=== PATIENT | female | born 1950 ===

== ENCOUNTER 2024-03-18 08:00 | Inpatient (IN) | payer OTHER ==
[~2024-03-18] VITALS: Ht 144.8 cm; Wt 68.0 kg
[2024-03-18 09:19] LABS: HEMATOCRIT 37.4 % (36.0-45.00); HEMOGLOBIN 12.7 g/dL (12.0-15.00); MEAN CELL VOLUME 87.7 fL (80.00-100.00); MEAN CORPUSCULAR HEMOGLOBIN 29.9 pg (27.00-32.0); MEAN CORPUSCULAR HGB CONC 34.1 g/dl (32.0-36.0); PLATELET COUNT 208 K/uL (150-450); RED BLOOD COUNT 4.26 M/uL (4.00-6.00); RED CELL DISTRIBUTION WIDTH 13.2 % (11.5-14.5)
[2024-03-18 09:22] LABS: URINE APPEARANCE Clear; URINE BILIRRUBIN Negative (NEGATIVE); URINE BLOOD Small; URINE COLOR Yellow; URINE GLUCOSE Negative (NEGATIVE); URINE KETONE Negative (NEGATIVE); URINE LEUKOCYTE Moderate; URINE NITRATE Negative; URINE PROTEIN Negative (NEGATIVE); URINE UROBILINOGEN 0.2 E.U./dl
[2024-03-18] MEDS ORDERED: ATACAND32 MG PO (09:45)
[2024-03-18] MEDS ORDERED: NORVASC10 MG PO (09:45)
[2024-03-18] MEDS ORDERED: ZETIA10 MG PO (09:45)
[2024-03-18] MEDS ORDERED: TOPROL XL25 M1 PO (09:45)
[2024-03-18] MEDS ORDERED: DRAMAMINE LESS25 MG PO (09:46)
[2024-03-18 09:47] VITALS: BP 140/80
[2024-03-18 09:47] LABS: PARTIAL THROMBOPLASTIN TIME 25.4 SECONDS (22.0-34.0); PROTHROMBIN TIME 10.9 SECONDS (9.0-11.5)
[2024-03-18 09:57] LABS: URINE RBC 52.9 uL (0.0-20.8); URINE WBC 103.5 uL (0.0-23.2)
[2024-03-18 09:58] LABS: URINE BACTERIA 71.8 uL (0.0-1933); URINE CAST 0.15 uL (0.0-1.40); URINE EPITHELIAL CELLS 18.8 uL (0.0-38.8)
[2024-03-18 10:32] LABS: ALBUMIN 3.7 gm/dL (3.4-5.0); BILIRUBIN TOTAL 0.73 mg/dL (0.3-1.2); CALCIUM 9.8 mg/dL (8.5-10.1); CREATININE SERUM 0.58 mg/dL (0.55-1.02); GFR 101.62; GLOBULINA 3.5 G/DL (2.4-3.5); POTASSIUM 4.02 mEq/L (3.5-5.1); TOTAL PROTEIN 7.2 gm/dL (6.4-8.2)
[2024-03-23] MEDS ORDERED: POVIDONE-IODINE 118 ML BOTT TOP SCH (13:15)
[2024-03-23] MEDS ORDERED: CEFAZOLIN SODIUM 1,000 MG VIAL IV SCH ×2 (13:15→17:00)
[2024-03-23] MEDS ORDERED: MORPHINE SULFATE 4 MG/ML VIAL IV ONE (15:00)
[2024-03-23] MEDS ORDERED: DEXTROSE 5 % AND 0.9 % NACL 1,000 ML IV SCH (15:15)
[2024-03-23] MEDS ORDERED: RINGERS SOLUTION,LACTATED 1,000 ML IV SCH (15:15)
[2024-03-23] MEDS ORDERED: PRAVASTATIN SOD20 MG (15:30)
[2024-03-23] MEDS ORDERED: HYDRODIURIL12.5 MG (15:31)
[2024-03-23] MEDS ORDERED: MAXIMUM D3325 MCG (15:31)
[2024-03-23 16:48] VITALS: BP 153/55
[2024-03-23] MEDS ORDERED: MEPERIDINE HCL/PF 25 MG/ML VIAL IM SCH (17:00)
[2024-03-23] MEDS ORDERED: ONDANSETRON HCL 2 MG/ML VIAL IV SCH (17:00)
[2024-03-23] MEDS ORDERED: PROMETHAZINE HCL 50 MG/ML AMPUL IM SCH (17:00)
[2024-03-24] VITALS: BP 129/78
[2024-03-24] MEDS ORDERED: OxyCODONE HCL/APAP UD (PERCOCET) PO SCH (06:00)
[2024-03-24] MEDS ORDERED: DOCUSATE CALCIUM 240 MG CAPSULE PO SCH (09:00)
[2024-03-24] MEDS ORDERED: SIMETHICONE 125 MG CAPSULE PO SCH (09:00)
[2024-03-24 16:00] VITALS: BP 149/72
[2024-03-25 01:02] VITALS: BP 145/67
== END 2024-03-25 10:28 | disposition home or self-care (01) | DRG 743 ==
LOC: O/R 03-23 05:36 → OB/GYN 03-23 05:36 → SURH 03-23 07:00 → OB/GYN 03-23 15:57
PROVIDERS: ADMIT Obstetrics & Gynecology; ATTEND Obstetrics & Gynecology
PROC: 0UT90ZZ Resection of Uterus, Open Approach (ICD-10-PCS; principal; 2024-03-23 07:00)
DX: D25.1 Intramural leiomyoma of uterus (principal); N84.0 Polyp of corpus uteri; Z20.822 Contact with and (suspected) exposure to COVID-19